=== PATIENT | female | born 1990 | race Asian ===

== ENCOUNTER 2021-11-27 14:19 | Emergency (ER) | payer OTHER ==
[~2021-11-27] VITALS: Ht 154.9 cm; Wt 65.8 kg
[2021-11-27 14:35] VITALS: BP 127/63
[2021-11-27] MEDS ORDERED: RALT400T PO (15:13)
[2021-11-27] MEDS ORDERED: EMTR1TAB12 PO (15:13)
[2021-11-27 15:30] VITALS: BP 127/63
[2021-11-28 08:08] LABS: HEPATITIS B SURFACE ANTIGEN Negative (Negative)
== END 2021-11-27 15:29 | disposition home or self-care (01) ==
LOC: MED 14:19
DX: S61.431A Puncture wound without foreign body of right hand, initial encounter (principal); W46.0XXA Contact with hypodermic needle, initial encounter; Y92.89 Other specified places as the place of occurrence of the external cause; Y93.89 Activity, other specified; Y99.8 Other external cause status
CPT/HCPCS: 36415; 86702; 86803; 87340; 99283